=== PATIENT | male | born 1980 | race Asian ===

== ENCOUNTER 2022-06-15 10:16 | Emergency (ER) | payer OTHER ==
--- NOTE | 2022-06-15 11:26 | XRAY Report ---
PROCEDURE: Chest 1 View X-Ray INDICATIONS: cough TECHNIQUE: One view of the chest was acquired. COMPARISON: None FINDINGS: Surgical changes and devices: None. Lungs and pleura: No pleural effusions or pneumothorax. Lungs are clear. Mediastinum: Mediastinal contours appear normal. Heart size is normal. Bones and chest wall: No suspicious bony lesions. Overlying soft tissues appear unremarkable. IMPRESSION: No acute cardiopulmonary findings. Reviewed by: Valerie Thompson MD on 06/15/2022 11:25 AM PDT Approved by: Valerie Thompson MD on 06/15/2022 11:25 AM PDT Station ID: [id number]
[2022-06-15 14:12] VITALS: BP 142/83
--- NOTE | 2022-06-15 14:15 | ED Physician Documentation ---
History of Present Illness - Stated complaint Stated Complaint: COUGH - Chief complaint Chief Complaint: Resp - History obtained from History obtained from: Patient - Additonal information Additional information: Otherwise healthy 42-year-old gentleman has had a cough for 2 weeks. The whole family was sick, but his cough is persistent with production of green sputum and shortness of breath with coughing and coughing fits. He is tried numerous [id number] remedies without relief. Review of Systems Constitutional: denies: Fever, Chills Cardiac: reports: Reviewed and negative Respiratory: reports: Dyspnea, Cough PD PAST MEDICAL HISTORY - Past Medical History Past Medical History: No - Present Medications Home Medications: Ambulatory Orders Medication Instructions Recorded Confirmed Albuterol Sulf [Ventolin Hfa 1 - 2 puffs INH Q4HR PRN #1 each 06/15/22 Inhaler] Atorvastatin [Lipitor] 10 mg PO DAILY 06/15/22 06/15/22 Benzonatate [Tessalon] 200 mg PO QID PRN #20 cap 06/15/22 Bupropion HCl [Wellbutrin Xl] 300 mg PO DAILY 06/15/22 06/15/22 Cetirizine [ZyrTEC] 10 mg PO ONCE 06/15/22 06/15/22 Doxycycline Hyclate 100 mg PO BID #14 cap 06/15/22 guaiFENesin/CODEINE [Robitussin AC] 5 - 10 ml PO Q6H PRN #120 ml 06/15/22 - Allergies Allergies/Adverse Reactions: Allergies Allergy/AdvReac Type Severity Reaction Status Date / Time No Known Drug Allergies Allergy Verified 06/15/22 10:43 - Social History Does the pt smoke?: No Smoking Status: Never smoker Does the pt drink ETOH?: Yes Does the pt have substance abuse?: No - POLST Patient has POLST: No PD ED PE NORMAL - Vitals Vital signs reviewed: Yes - General General: Alert and oriented X 3, No acute distress - Respiratory Respiratory: No respiratory distress, Other (Rhonchorous and wheezy especially at the bases, nonlabored) - Abdomen Abdomen: Non tender - Neuro Neuro: Alert and oriented X 3, Normal speech - Psych Psych: Normal mood, Normal affect Results - Vitals Vitals: Vital Signs - 24 hr 06/15/22 06/15/22 10:40 14:11 Temperature 36.7 C 36.5 C Heart Rate 82 58 L Respiratory 18 20 Rate Blood Pressure 120/79 142/83 H O2 Saturation 100 97 Oxygen O2 Source Room air PD MEDICAL DECISION MAKING - ED course ED course: 42-year-old gentleman with bronchitis. Abnormal lung sounds in the timeframe would suggest a trial of antibiotics is warranted. Of note I had to write him a paper prescription as he did not know what pharmacy was going to go to. He has [facility] and we called around and it does not seem that anyone local takes it. Departure - Departure Disposition: Home, Self Care Clinical Impression: Bronchitis Condition: Good Record reviewed to determine appropriate education?: Yes Instructions: ED Upper Resp Infec Abx Tx Prescriptions: Albuterol Sulf [Ventolin Hfa Inhaler] 1 - 2 puffs INH Q4HR PRN #1 each PRN Reason: Shortness Of Air/Wheezing Doxycycline Hyclate 100 mg PO BID #14 cap guaiFENesin/CODEINE [Robitussin AC] 5 - 10 ml PO Q6H PRN #120 ml PRN Reason: Cough Benzonatate [Tessalon] 200 mg PO QID PRN #20 cap PRN Reason: Cough Discharge Date/Time: 06/15/22 14:28
== END 2022-06-15 14:28 | disposition home or self-care (01) ==
LOC: ED 10:16
DX: J40 Bronchitis, not specified as acute or chronic (principal)
CPT/HCPCS: 99284

== ENCOUNTER 2022-12-31 17:27 | Emergency (ER) | payer OTHER ==
[2022-12-31] MEDS ORDERED: PSEUDOEPHEDRINE 30 MG TABLET PO STA (19:07)
[2022-12-31] MEDS ORDERED: CETIRIZINE 10 MG TABLET PO STA (19:07)
[2022-12-31] MEDS ORDERED: BENZONATATE 100 MG CAPSULE PO STA (19:07)
--- NOTE | 2022-12-31 19:10 | ED Physician Documentation ---
PD HPI URI - Stated complaint Stated Complaint: C+,DIZZINESS,HEADACHE - Chief complaint Chief Complaint: Resp - History obtained from History obtained from: Patient - History of Present Illness Timing - onset: Today Timing duration: Days (1) Timing details: Gradual onset Pain level max: 0 Pain level now: 0 Associated symptoms: Nasal congestion, Rhinorrhea, Dry cough. No: Fever Contributing factors: Sick contact (+covid) - Additional information Additional information: 42-year-old male states that he has been sick for the past 2 days. He states his significant other tested positive for COVID and he tested positive for COVID today. Was instructed to come here by the [employer]. Review of Systems Nose: reports: Rhinorrhea / runny nose, Congestion Respiratory: reports: Cough GI: denies: Vomiting, Diarrhea Skin: denies: Rash Musculoskeletal: denies: Neck pain, Back pain Neurologic: denies: Headache PD PAST MEDICAL HISTORY - Past Medical History Past Medical History: No - Past Surgical History Past Surgical History: No - Present Medications Home Medications: Ambulatory Orders Medication Instructions Recorded Confirmed Albuterol Sulf [Ventolin Hfa 1 - 2 puffs INH Q4HR PRN #1 each 06/15/22 Inhaler] Atorvastatin [Lipitor] 10 mg PO DAILY 06/15/22 06/15/22 Benzonatate [Tessalon] 200 mg PO QID PRN #20 cap 06/15/22 Cetirizine [ZyrTEC] 10 mg PO ONCE 06/15/22 06/15/22 Doxycycline Hyclate 100 mg PO BID #14 cap 06/15/22 buPROPion HCL [Wellbutrin Xl] 300 mg PO DAILY 06/15/22 06/15/22 guaiFENesin/CODEINE [Robitussin AC] 5 - 10 ml PO Q6H PRN #120 ml 06/15/22 Benzonatate [Tessalon] 200 mg PO TID PRN #30 cap 12/31/22 Cetirizine HCl/Pseudoephedrine 1 each PO BID PRN #30 tab 12/31/22 [Zyrtec-D Tablet] - Allergies Allergies/Adverse Reactions: Allergies Allergy/AdvReac Type Severity Reaction Status Date / Time albuterol Allergy Respiratory Verified 12/31/22 17:47 - Social History Does the pt smoke?: No Smoking Status: Never smoker Does the pt drink ETOH?: Yes Does the pt have substance abuse?: No - Family History Family history: reports: Non contributory - POLST Patient has POLST: No PD ED PE NORMAL - Vitals Vital signs reviewed: Yes - General General: Alert and oriented X 3, No acute distress - HEENT HEENT: PERRL, Ears normal, Moist mucous membranes, Pharynx benign - Neck Neck: Supple, no meningeal sign, No adenopathy - Cardiac Cardiac: RRR, Strong equal pulses - Respiratory Respiratory: No respiratory distress, Clear bilaterally - Abdomen Abdomen: Soft, Non tender, Non distended - Derm Derm: Warm and dry - Extremities Extremities: No edema, No calf tenderness / cord - Neuro Neuro: Alert and oriented X 3 - Psych Psych: Normal mood, Normal affect Results - Vitals Vitals: Vital Signs - 24 hr 12/31/22 12/31/22 17:45 19:29 Temperature 37.5 C 36.9 C Heart Rate 91 72 Respiratory 16 18 Rate Blood Pressure 149/74 H 158/71 H O2 Saturation 96 99 Oxygen O2 Source Room air PD Medical Decision Making - ED course Complexity details: considered differential, d/w patient ED course: Patient is very well-appearing, nontoxic. Afebrile. No hypoxia or respiratory distress. No acute findings on examination. We will place him on decongestants and cough medication for home. We will have her follow-up with her doctor for further care. Discussed antiviral therapy, patient declines at this time. Patient counseled regarding signs and symptoms for which I believe and urgent re-evaluation would be necessary. Patient with good understanding of and agreement to plan and is comfortable going home at this time This document was made in part using voice recognition software. While efforts are made to proofread this document, sound alike and grammatical errors may occur. Departure - Departure Disposition: Home, Self Care Clinical Impression: COVID-19 Condition: Good Instructions: ED Viral Syndrome Follow-Up: your,doctor in 1 week [Other] Prescriptions: Benzonatate [Tessalon] 200 mg PO TID PRN #30 cap PRN Reason: Cough Cetirizine HCl/Pseudoephedrine [Zyrtec-D Tablet] 1 each PO BID PRN #30 tab PRN Reason: nasal congestion Comments: [facility] [place]. Please follow-up with your doctor for further care. Return if you worsen. Isolation precautions for COVID Day 0 is your first day of symptoms or a positive viral test. Day 1 is the first full day after your symptoms developed or your test specimen was collected. If you have COVID-19 or have symptoms, isolate for at least 5 days. IF YOU: Tested positive for COVID-19 or have symptoms, regardless of vaccination status Stay home for at least 5 days Stay home for 5 days and isolate from others in your home. Wear a well-fitting mask if you must be around others in your home. Do not travel. Ending isolation if you had symptoms End isolation after 5 full days if you are fever-free for 24 hours (without the use of fever-reducing medication) and your symptoms are improving. Ending isolation if you did NOT have symptoms End isolation after at least 5 full days after your positive test. If you got very sick from COVID-19 or have a weakened immune system You should isolate for at least 10 days. Consult your doctor before ending isolation. Take precautions until day 10 Wear a well-fitting mask Wear a well-fitting mask for 10 full days any time you are around others inside your home or in public. Do not go to places where you are unable to wear a mask. Do not travel Do not travel until a full 10 days after your symptoms started or the date your positive test was taken if you had no symptoms. Avoid being around people who are more likely to get very sick from COVID-19. Forms: Activity restrictions Discharge Date/Time: 12/31/22 19:31
[2022-12-31 19:31] VITALS: BP 158/71
== END 2022-12-31 19:31 | disposition home or self-care (01) ==
LOC: ED 17:27
DX: U07.1 COVID-19 (principal)
CPT/HCPCS: 99282; 99283; A9270

== ENCOUNTER 2023-05-06 23:32 | Emergency (ER) | payer OTHER ==
[2023-05-07] MEDS ORDERED: HYDROcod/ACETAM 5/325 MG TABLET PO STA (00:25)
[2023-05-07] MEDS ORDERED: FAMOTIDINE 20 MG TABLET PO STA (00:25)
[2023-05-07] MEDS ORDERED: DEXAMETHASONE 10 MG/ML VIAL PO STA (00:25)
[2023-05-07] MEDS ORDERED: CHERRY SYRUP 10 ML UDC PO ONE (00:25)
[2023-05-07] MEDS ORDERED: diphenhydrAMINE 25 MG CAPSULE PO STA (01:54)
[2023-05-07 02:11] VITALS: O2SAT 96
--- NOTE | 2023-05-07 03:21 | ED Physician Documentation ---
History of Present Illness - Stated complaint Stated Complaint: ALLERGIC REACTION - Chief complaint Chief Complaint: Allergic Rx - Additonal information Additional information: Patient 42-year-old male presenting with left arm swelling. Was stung by a bee in between his left third and fourth finger. States that this is happened before and he is a local area of swelling in the same arm after bee sting. Denies any previous anaphylactic reactions. Denies any wheeze, shortness of breath. Does report was having some lightheadedness earlier this evening. States that this is now resolved. Review of Systems Constitutional: denies: Fever Eyes: denies: Loss of vision Ears: denies: Loss of hearing Nose: denies: Rhinorrhea / runny nose Throat: denies: Dental pain / toothache Cardiac: denies: Chest pain / pressure Respiratory: denies: Dyspnea GI: denies: Abdominal Pain : denies: Dysuria PD PAST MEDICAL HISTORY - Past Surgical History Past Surgical History: No - Present Medications Home Medications: Ambulatory Orders Medication Instructions Recorded Confirmed Atorvastatin [Lipitor] 10 mg PO DAILY 06/15/22 05/06/23 buPROPion HCL [Wellbutrin Xl] 300 mg PO DAILY 06/15/22 05/06/23 Prazosin HCl [Minipress] 2 mg PO DAILY 05/06/23 05/06/23 Prazosin HCl [Minipress] 10 mg PO HS 05/06/23 05/06/23 Sertraline HCl 1.5 tab PO DAILY 05/06/23 05/06/23 traZODone [Desyrel] 1 tab PO HS 05/06/23 05/06/23 EPINEPHrine [Epinephrine] 0.3 mg IJ ONCE PRN #1 each 05/07/23 - Allergies Allergies/Adverse Reactions: Allergies Allergy/AdvReac Type Severity Reaction Status Date / Time albuterol Allergy Respiratory Verified 05/06/23 23:41 - Social History Does the pt smoke?: No Smoking Status: Never smoker Does the pt drink ETOH?: Yes Does the pt have substance abuse?: No - POLST Patient has POLST: No PD ED PE NORMAL - Vitals Vital signs reviewed: Yes - General General: Alert and oriented X 3 - HEENT HEENT: Atraumatic - Neck Neck: Supple, no meningeal sign - Cardiac Cardiac: RRR, No murmur, No gallop, Strong equal pulses - Respiratory Respiratory: No respiratory distress, Clear bilaterally - Abdomen Abdomen: Normal bowel sounds - Male Male : Deferred - Rectal Rectal: Deferred - Back Back: No CVA TTP - Extremities Extremities: Other (Prominent soft tissue swelling of the left arm.) Results - Vitals Vitals: Vital Signs - 24 hr 05/06/23 05/07/23 23:37 02:03 Temperature 36.5 C Heart Rate 69 73 Respiratory 20 16 Rate Blood Pressure 145/91 H 133/85 H O2 Saturation 98 96 Oxygen O2 Source Room air PD Medical Decision Making - ED course Complexity details: reviewed results, re-evaluated patient, d/w patient ED course: Patient 42-year-old male presenting with local area swelling to his left upper extremity. This is after bee sting that occurred earlier today. Has had similar local area swelling after bee stings. No history of other hymenoptera insect allergies. Afebrile, hemodynamically stable. Clear aeration in all lung guillaume. No indication anaphylaxis. Given Decadron, Pepcid. Some improvement but patient continued to endorse for itching. Subsequently given Benadryl which had been held initially as he stated he had taken a dose of it immediately prior to arrival. There was significant improvement in the swelling over the course of 4 hours of monitoring in the emergency department. Will discharge with instructions to avoid bee stings in the future, follow-up with primary care as well as with prescription for an EpiPen that he can use as needed. Departure - Departure Disposition: 01 Home, Self Care Clinical Impression: Allergic reaction Qualifiers: Encounter type: initial encounter Qualified Code(s): T78.40XA - Allergy, unspecified, initial encounter Instructions: ED Bite Sting Insect Gen Allergic React Prescriptions: EPINEPHrine [Epinephrine] 0.3 mg IJ ONCE PRN #1 each PRN Reason: Anaphylaxis Comments: Thank you for allowing us to care for you today [facility]. Today in the emergency department you were treated for a allergic reaction in your left upper extremity. Please avoid bees and other stinging insects as much as possible in the future. I written a prescription for an EpiPen, Please use as directed. I recommend regular Benadryl as needed at home for any ongoing swelling or itching. Your symptoms should be steadily improving. If they are not or they begin to worsen please return to the emergency department.
[2023-05-07 03:40] VITALS: BP 140/89
== END 2023-05-07 03:35 | disposition home or self-care (01) ==
LOC: ED 23:32
DX: T63.441A Toxic effect of venom of bees, accidental (unintentional), initial encounter (principal); Z79.899 Other long term (current) drug therapy
CPT/HCPCS: 99282; 99283; A9270

== ENCOUNTER 2023-11-14 10:09 | Outpatient (CLI) | payer OTHER ==
--- NOTE | 2023-11-14 10:52 | Sleep Patient Instructions ---
Sleep Center Visit Summary - Patient Visit Information Reason for Visit: Initial consultation - Patient Instructions Additional Instructions: You will be completing a sleep study, either an in-lab polysomnography (PSG) or home sleep study (HST). You will follow-up in the sleep care office after the sleep study is completed to hear the results and talk about therapy, if needed. You will be called by our office staff to schedule this appointment, but you may contact us with any questions. - Clinic Information Contact: [facility] [address] [place] [address] [email or web address] T: [phone]
--- NOTE | 2023-11-14 11:00 | SLEEP CARE CONSULTATION ---
Information from patient questionnaire entered by Jaylen Sosa. I have reviewed and concur with the information entered by Jaylen Sosa. This document represents the service I personally performed and the decisions made by me, Maggie Hong ARNP. History of Present Illness Service Date and Time: 11/14/2023 1009 Reason for Visit: New patient, Previously diagnosed sleep apnea, sleep apnea on CPAP therapy Chief Complaint: reports: Snoring (even when using CPAP) Date of Onset: 10+YRS Usual bedtime: 8-10PM Time it takes to fall asleep: 15MINS Snores at night: Yes Observed to quit breathing while asleep: Yes Sleeps alone due to snoring: Yes Number of times waking at night: 0-1 Reasons for waking at night: reports: Choking, Gasping for air, Bathroom, Other (SWEATING) Toss, Turn, or Twitch while sleeping: Yes Recalls having dreams: Yes (having nightmares 3-4 nights a week) Usually gets out of bed at: 0630 Feels refreshed in the morning: No Morning headache: Yes (almost every morning) Sleepy or fatigued during the day: Yes Ever fallen asleep while driving: Yes (drowsy driving, no accidents) Takes day naps: No Prior sleep studies: Yes Additional HPI information: LORAINE WHITE was previously diagnosed to have unknown, AHI unknown, sleep apnea-hypopnea syndrome and comes in today to establish care for CPAP therapy. He says last sleep study was done in 2016 or 2016. He was told his number was 12 or 13. He was put on a CPAP. His girlfriend tells him he is still snoring and it is loud enough that she will sleep in other room. He is still tired when gets up and tired throughout the day. He wakes up with dry mouth every morning, bad taste in mouth. He does sleep with mouth open because he cannot breathe through his nose due to congestion. He has been late for work before because he slept through alarm. He takes trazadone to help him sleep at night due to PTSD. If he does not take it he does not sleep. - Parasomnia Symptoms Ever been unable to move upon waking from sleep: Yes Walks in sleep: No Talks in sleep: Yes Ever acted out dreams in sleep: Yes (sits up, screams from nightmares, does not remember) Ever felt weak in the knees when startled or emotional: Yes Bothered by creepy, crawly, restless sensations in legs: Yes Problems with memory or concentration: Yes CPAP Compliance Data - Data Reviewed with Patient Average duration of nightly device use: 6 hours 40 mins Compliance rate %: 84 (08/17/23-11/14/23; 88/90 days used) Current pressure setting (cmH2O): 10-20 (median 11.5, avg 13.9, max 15.3) Average residual AHI: 1.6 Central apnea: 0.2 Obstructive apnea: 1.1 Hypopnea: 0.2 Average large leak: 0.5 L/min Compliance data discussion: He has an [employer] Airsense 10 that was updated on 06/12/2023. [facility] He is using a Mirage FX nasal mask, wide cushion. Subjective Patient concerns: reports: nasal congestion, dry mouth, nose, throat (dry mouth, will oral venting). denies: aerophagia, mask discomfort, air blowing in eyes, mask leak noise, condensation in mask/hose, epistaxis Observed to snore while using device: Yes Current pressure setting perceived as: comfortable On therapy, patient: reports: sleeping better, more rested overall. denies: drowsiness while driving Initial [place] Sleepiness Scale score: 2 (11/14/23) Past Medical History Past Medical History: reports: Anxiety, Depression, Other (PTSD; high cholesterol) Social History The patient's occupation is a [employer]. Patient is Single and lives in [place]. Have you smoked in the past 12 months: No Alcohol use: No Caffeine use: Yes Caffeine amount and frequency: 2CUPS QAM Family History Family history of sleep disordered breathing: No Allergies and Home Medications Known drug allergies: Yes ( LISTED) Drug allergies reviewed: Yes Home medication list reviewed: Yes (as listed) Allergy and home medication list: Allergies albuterol Allergy (Verified 11/12/23 09:46) Respiratory Home Medications Medication Instructions Recorded Confirmed Last Taken Type Atorvastatin [Lipitor] 10 mg PO DAILY 06/15/22 11/14/23 06/15/22 History buPROPion HCL [Wellbutrin Xl] 300 mg PO DAILY 06/15/22 11/14/23 06/15/22 History Prazosin HCl [Minipress] 2 mg PO DAILY 05/06/23 11/14/23 Unknown History Prazosin HCl [Minipress] 10 mg PO HS 05/06/23 11/14/23 Unknown History Sertraline HCl 1.5 tab PO DAILY 05/06/23 11/14/23 Unknown History traZODone [Desyrel] 1 tab PO HS 05/06/23 11/14/23 Unknown History EPINEPHrine [Epinephrine] 0.3 mg IJ ONCE PRN #1 each 05/07/23 11/14/23 Unknown Rx Gabapentin [Neurontin] See Rx Instructions .ROUTE .COMPLEX 11/14/23 11/14/23 Unknown History Review of Systems Cardiovascular: denies: high blood pressure Gastrointestinal: denies: heartburn Neurological: denies: headaches Psychiatric: reports: Attention Deficit Hyperactivity, anxiety, depression, other (PTSD) Ear/Nose/Throat: reports: nasal congestion, sinus problems, nose bleeds, dry m outh/throat, hoarseness, tonsillectomy, wisdom teeth removed Musculoskeletal: reports: joint pain, neck pain, back pain, muscle pain or cramping Immunologic: reports: sneezing Physical Exam Vital signs obtained and entered by: JAYLEN Rodríguez MA Blood Pressure: 140/87 (LEFT ARM) Cuff size: regular Heart Rate: 56 O2 Saturation: 99 Height: 5 ft 7 in Weight: 215 lb Body Mass Index: 33.6 BMI Classification: Obese Neck circumference: 18 Heart: regular rate and rhythm Lungs: clear bilaterally Impression and Plan 1. Obstructive Sleep Apnea-Hypopnea Syndrome, unknown, with good treatment co mpliance and good apnea control. On CPAP therapy, the patient has better sleep quality and is more rested overall. He has significant improvement of his sleep apnea and is comfortable with CPAP therapy. He still snores, according to his girlfriend, and know he will sleep with mouth open. He wakes up with nasal congestion and very dry mouth. He is using a nasal cushion. He appears to be oral venting but says he cannot sleep with mouth closed because of air hunger when trying to breathe through nose with chin strap. He has had his nose broken a few times and other environmental injuries to his nose/sinuses. I advised him to see an ENT for further evaluation and treatment of sinus issues. He appears to have effective CPAP therapy. I do not have a copy of his last sleep study and he says it was over 10 years ago. I will order another PSG to verify diagnosis and severity. He will followup in office after the sleep study. Patient's apnea severity and rationale for treatment to reduce apnea, improve sleep quality and reduce cardiovascular and cerebrovascular events was reviewed. I also reviewed the benefit of consistent device use of CPAP for depression/anxiety and PTSD. 2. Obesity, unspecified. Currently patients BMI is 33.6. Obesity increases the risk of apnea, CPAP pressure requirements and overall health risks especially cardiovascular and diabetes. Thus patient is advised to lose weight. * Continue auto CPAP pressure at 10-20 cmH2O * PSG to verify diagnosis and severity * Notify me if snoring with mask or feeling that the pressure is too much or too little * Attempt to lose weight * Call this office if any problems using CPAP * Return for follow up after sleep study, or sooner if concerns arise Counseling Topics: Weight loss health impact Follow up with Sleep Care in: other (after sleep study) Plan: PSG Visit Type: In Office Time Spent with Patient (minutes): 33 Provider Statement: I spent 100% of the Face to Face Visit with the patient with greater than 50% spent counseling the patient and coordination of care.
[2023-11-14 11:03] VITALS: BP 140/87; O2SAT 99
== END 2023-11-14 10:10 | disposition home or self-care (01) ==
LOC: SC 10:09
PROVIDERS: ATTEND Nurse Practitioner Family
DX: G47.33 Obstructive sleep apnea (adult) (pediatric) (principal); E66.9 Obesity, unspecified; Z68.33 Body mass index [BMI] 33.0-33.9, adult
CPT/HCPCS: 99203; 99212

== ENCOUNTER 2023-12-02 19:46 | Outpatient (CLI) | payer OTHER | END 2023-12-02 19:47 | disposition home or self-care (01) | LOC: SC 19:46 | PROVIDERS: ATTEND Nurse Practitioner Family | DX: G47.33 Obstructive sleep apnea (adult) (pediatric) (principal) | CPT/HCPCS: 95810 ==